=== PATIENT | female | born 2000 | race African-American/Black ===

== ENCOUNTER 2025-10-01 02:59 | Emergency (ER) | payer OTHER, SELFPAY ==
[2025-10-01 03:02] VITALS: BP 118/70; PULSE 88; RESP 18; TEMP 36.6; O2SAT 99; BMI 35.1
[2025-10-01 03:19] VITALS: BP 115/79; PULSE 82; RESP 16; TEMP 36.7; O2SAT 97
--- NOTE | 2025-10-01 03:27 | PC.NURSE ---
Patient presents to Ed c/o headache on left parietal lobe rated 10/10 Patient has been experiencing this pain for months now and has an appt to see her primary Patient also reports having syncopal episodes, last episode was a couple months ago +ROM of head, neck muscle noted to be tight Provider in to see patient VSS and up to date Plan of care on going
--- NOTE | 2025-10-01 03:31 | ECG_ITS ---
Test Reason : syncopal episodes Blood Pressure : */* mmHG Vent. Rate : 75 BPM Atrial Rate : 75 BPM P-R Int : 180 ms QRS Dur : 82 ms QT Int : 382 ms P-R-T Axes : 47 63 27 degrees QTcB Int : 426 ms Normal sinus rhythm Normal ECG No previous ECGs available Referred By: Ammy Cruz Electronically Signed By: MIRANDA GUILLEN MD
--- NOTE | 2025-10-01 03:34 | ED_ITS ---
HPI - Headache General Chief Complaint: Headache Stated Complaint: Headache Time Seen by Provider: 10/01/25 03:14 Source: patient Mode of arrival: ambulatory Limitations: no limitations History of Present Illness ED Provider: Dr. Ammy Cruz HPI Narrative: Patient comes to the emergency room complaining of months of sharp shooting pain starting from the back of the head towards the middle of the back towards the shoulder and the same side of the neck. Patient states that it gets worse with stress. Patient denies any injuries. also, patient states that couple of times, she has had syncopal episodes. Last time happened a proximally 2-3 months ago. Patient states that she was in a restaurant and all of a sudden she passed out at the table. Patient states that she does not have insurance and has not been seen by a PCP. patient states that she does not recall much, but does not believe that there was any chest pain, palpitations or shortness of breath. Related Data Previous Rx's ?Medication ?Instructions ?Recorded cyclobenzaprine 5 mg tablet 5 mg PO BID PRN muscle spa sm #14 10/01/25 tabs ibuprofen 600 mg tablet 600 mg PO Q8H PRN fever or p ain 10/01/25 #20 tabs Allergies Allergy/AdvReac Type Severity Reaction Status Date / Time No Known Allergies (No Known Allergy Verified 10/01/25 03:04 Allergies*) Review of Systems 2 Review of Systems: Constitutional : No Weight loss, No Fever, No Chills, No Night Sweats, No Fatigue, No Malaise ENT/Mouth : No Hearing loss, No Ear Pain, No Nasal Congestion, No Sinus Pain, No Hoarseness, No sore throat, No Rhinorrhea, No Swallowing Difficulty Eyes: No Eye Pain, No Swelling, No Redness, No Foreign Body, No Discharge, No Vision Changes Cardiovascular : No Chest Pain, No SOB, No Dyspnea on Exertion, No Orthopnea, No Edema, No Palpitations Respiratory : No Cough, No Sputum, No Wheezing, No Smoke Exposure, No Dyspnea Gastrointestinal : No Nausea, No Vomiting, No Diarrhea, No Constipation, No abdominal Pain, No Hematochezia, No Melena Genitourinary : no irregular bleeding, No Dysuria, No Urinary Frequency, No Hematuria, No Urinary Incontinence, No Urgency, No Flank Pain, No Urinary Flow Changes, No Hesitancy Musculoskeletal : complaining of left-sided posterior neck pain, worsens with stress. No joint pain, No Myalgias, No Joint Swelling Skin : No Skin Lesions, No rash Neuro : No Weakness, No Numbness, No Paresthesias, Patient reports multiple syncopal episodes in the last year, last 1 2 months ago. No Dizziness, No Headache Psych : No Anxiety/Panic, No Depression, No SI/HI/AH/VH, No Social Issues, Heme/Lymph: No Bruising, No Bleeding,No Lymphadenopathy Endocrine : No Polyuria, No Polydipsia, No Temperature Intolerance [facility] Social History Social History Alcohol intake: current Alcohol intake frequency: holidays/special occasions only Alcohol type: beer, wine and hard liquor Smoked in Last 30 Days: No Use of substances other than those prescribed or required for medical reasons: No Patient : No Physical Exam 2 Exam: Exam: Appearance: Alert. Oriented X3. No acute distress. Eyes: Pupils equal, round and reactive to light. in patient's right pupil, there is a small 2 mm x 2 mm cataract ENT: Pharynx normal. Neck: Normal inspection. Neck supple. No lymph nodes noted. No crepitus CVS: Normal heart rate and rhythm. Pulses normal. Normal S1 and S2 Respiratory: No respiratory distress. Breath sounds normal. No Wheezing. No rales Abdomen: Soft and nontender. No rigidity. No distention back: Pain to palpation over the supra scapula and supra clavicular area only on the left, also pain to palpation in the left side of the neck. Pain to palpation over the rhomboid and sternocleidomastoid distribution. Skin: Skin warm and dry. Normal skin color. Normal skin turgor. Extremities: No lower extremity edema. No Lacerations. No Rash Neuro: Oriented X 3. No motor deficit. No sensory deficit. Moving all extremities. No slurred speech. CN 2 through 12 grossly intact Psych: calm, cooperative, normal affect Vital Signs: Vital Signs: Last Vital Signs Temp 98.1 F 10/01/25 04:23 Pulse 79 10/01/25 04:23 Resp 14 10/01/25 04:23 BP 119/82 10/01/25 04:23 Pulse Ox 96 10/01/25 04:23 O2 Del Method Room Air 10/01/25 04:23 BMI result Body Mass Index 35.1 Course Course Course Narrative: patient mainly coming to the emergency room complaining of left-sided neck pain and upper back pain. However, patient stated that also she has been having multiple episodes of passing out without any symptoms. Patient states that the last time this happened was 2 months ago. Patient was given ibuprofen and cyclobenzaprine for neck pain. EKG, blood work pending, discussed with the patient that eventually she will need a more thorough workup through cardiology Medications Administered Discontinued Medications Generic Name Dose Route Start Last Admin Trade Name Yamel PRN Reason Stop Dose Admin Cyclobenzaprine HCl 5 mg 10/01/25 03:33 10/01/25 03:45 Cyclobenzaprine Hcl 5 Mg Tablet PO 10/01/25 03:34 5 mg ONCE ONE Administration Ibuprofen 600 mg 10/01/25 03:33 10/01/25 03:44 Ibuprofen 600 Mg Tablet PO 10/01/25 03:34 600 mg ONCE ONE Administration Medical Decision Making Medical Decision Making [facility] Narrative: my interpretation of EKG: Normal sinus rhythm, heart rate 75, no ST segment depression or elevation, no T-wave inversion, QTC 426 my interpretation of labs: Normal hematology, normal chemistry, D-dimer negative, negative troponin, negative LFTs, negative beta-hCG orthostatic blood pressures negative I discussed with the patient that if she continues having the symptoms, she needs to have close follow-up with Cardiology, patient may be a good candidate for a Holter monitor evaluation. The last time the patient had a syncopal episode was over 2 months ago. No recent events. At this time, patient is asymptomatic. Patient's neck pain is better Differential Diagnosis Differential Diagnoses: The differential diagnosis associated with the presentation includes ( musculoskeletal pain.) Admission/Observation Consideration of admission/observation: Escalation of care including admission/observation considered ( given patient's history of syncope, observation was considered) Lab Data [facility] Lab Attestation statement: I reviewed the patient's lab results. 10/01/25 04:08 10/01/25 04:08 Labs: Lab Results 10/01/25 Range/Units 04:08 WBC 8.2 (4.8-10.8) X10*3/uL RBC 4.25 (4.20-5.50) X10*6/uL Hgb 12.2 (12.0-16.0) g/dl Hct 37.5 (37.0-47.0) % MCV 88.2 (80.0-98.0) fL MCH 28.7 (27.0-33.0) pg MCHC 32.5 (31.0-35.0) g/dl RDW 13.5 (11.0-16.0) % Plt Count 320 (160-400) X10*3/uL MPV 9.1 L (9.4-12.3) fL Immature Gran % (Auto) 0.2 (0.0-0.4) % Neut % (Auto) 63.0 (45-73) % Lymph % (Auto) 26.1 (20-40) % Stark % (Auto) 7.7 (2-11) % Eos % (Auto) 2.6 (0-4) % Baso % (Auto) 0.4 (0-2) % Lymph # (Auto) 2.1 (1.2-4.9) X10*3/uL Stark # (Auto) 0.6 (0.1-1.2) X10*3/uL Eos # (Auto) 0.2 (0.0-0.4) X10*3/uL Baso # (Auto) 0.0 (0.0-0.2) X10*3/uL Abs Immat Gran (auto) 0.02 (0.00-0.03) X10*3/uL Absolute Neuts (auto) 5.2 (2.0-8.3) x10*3/uL Absolute Nucleated RBC 0.000 (0.0-0.012) X10*3/uL Nucleated RBC % (auto) 0.0 (0.0-0.2) /100WBC D-Dimer High Sensitivty < 150 NG/ML Sodium 137 (135-145) mmol/L Potassium 4.2 (3.3-5.1) mmol/L Chloride 104 (96-108) mmol/L Carbon Dioxide 22 (22-29) mmol/L Anion Gap 15 (12-20) BUN 7 L (9-16) mg/dL Creatinine 0.72 (0.5-1.4) mg/dL Estim Creat Clear Calc 134.2 Estimated GFR > 60 Random Glucose 98 (60-115) mg/dL Calcium 9.2 (8.4-10.2) mg/dL Magnesium 1.7 (1.6-2.6) mg/dL Total Bilirubin 0.4 (0.0-1.0) mg/dL Direct Bilirubin 0.1 (0.0-0.5) mg/dL AST 25 (5-31) U/L ALT 18 (0-31) U/L Alkaline Phosphatase 100 (39-117) U/L Troponin I High Sens < 2.7 (<3.5-17.0) ng/L Total Protein 7.3 (6.5-8.0) g/dL Albumin 4.4 (3.5-5.0) g/dL Beta HCG, Quant < 2 mIU/mL Critical Care Time Critical Care Time Critical Care Time: Yes Total Critical Care Time: 35 Attestation: I have personally provided critical care time. Time includes review of lab data, radiology results, discussion with consultants, and monitoring for potential decompensation. Intervention performed as documented. Discharge Plan Discharge Clinical Impression: Neck pain, Episode of syncope Patient Disposition: Home, Self-Care Additional Instructions: Please follow-up with your primary care physician tomorrow. If you have any worsening or new symptoms, please return to the emergency room or call 911 Prescriptions: New cyclobenzaprine 5 mg tablet 5 mg PO BID PRN (Reason: muscle spasm) Qty: 14 0RF Rx Instructions: do not drive or go to work after using this medication. ibuprofen 600 mg tablet 600 mg PO Q8H PRN (Reason: fever or pain) Qty: 20 0RF Referrals: Leonardo Melara MD [Physician, Cardiology] Print Language: Bengali
[2025-10-01 04:13] LABS: Hematocrit 37.5 % (37.0-47.0); Hemoglobin 12.2 g/dl (12.0-16.0); Imm Gran Abs Auto 0.02 X10*3/uL (0.00-0.03); Imm Gran Pct Auto 0.2 % (0.0-0.4); Lymphocytes Absolute Auto 2.1 X10*3/uL (1.2-4.9); MANUAL DIFF FLAG NO; Mean Corpuscular HGB Conc 32.5 g/dl (31.0-35.0); Mean Corpuscular Hemoglobin 28.7 pg (27.0-33.0); Mean Corpuscular Volume 88.2 fL (80.0-98.0); NRBC Abs Auto 0.000 X10*3/uL (0.0-0.012); NRBC Pct Auto 0.0 /100WBC (0.0-0.2); Platelet Count 320 X10*3/uL (160-400); Red Blood Count 4.25 X10*6/uL (4.20-5.50); White Blood Count 8.2 X10*3/uL (4.8-10.8)
[2025-10-01 04:21] VITALS: BP 127/77; PULSE 76
[2025-10-01 04:21] LABS: D Dimer High Sensitivity < 150 NG/ML
[2025-10-01 04:22] VITALS: BP 119/82; BP 122/86; PULSE 75; PULSE 79
[2025-10-01 04:23] VITALS: BP 119/82; PULSE 79; RESP 14; TEMP 36.7; O2SAT 96
--- NOTE | 2025-10-01 04:35 | PC.NURSE ---
IV 20G placed Left AC Blood collected / sent EKG = NSR Orthos performed = negative Urine sample collected / sent Awaiting lab results
[2025-10-01 04:36] LABS: Troponin-I High Sensitivity < 2.7 ng/L (<3.5-17.0)
[2025-10-01 04:37] LABS: Alanine Aminotransferase 18 U/L (0-31); Albumin Level 4.4 g/dL (3.5-5.0); Alkaline Phosphatase 100 U/L (39-117); Anion Gap 15 (12-20); Aspartate Amino Transferase 25 U/L (5-31); Blood Urea Nitrogen 7 mg/dL (9-16); Calcium 9.2 mg/dL (8.4-10.2); Carbon Dioxide 22 mmol/L (22-29); Chloride 104 mmol/L (96-108); Creatinine Clr Calc Pharmacy 134.2; Estimated Glomerular Filt Rate > 60; Magnesium 1.7 mg/dL (1.6-2.6); Potassium 4.2 mmol/L (3.3-5.1); Sodium 137 mmol/L (135-145); Total Protein 7.3 g/dL (6.5-8.0)
[2025-10-01 04:48] LABS: Cannabinoid Screen Urine Not Detected (Not Detect)
[2025-10-01 05:07] VITALS: BP 119/82; PULSE 79; RESP 14; TEMP 36.7; O2SAT 96
== END 2025-10-01 05:09 | disposition home or self-care (01) ==
LOC: HO.ED 05:07
PROVIDERS: Emergency Provider Emergency Medicine; PCP Student in an Organized Health Care Education/Training Program
DX: M54.2 Cervicalgia (principal); R55 Syncope and collapse; R51.9 Headache, unspecified; M54.9 Dorsalgia, unspecified; M25.519 Pain in unspecified shoulder
CPT/HCPCS: 36415; 80048; 80076; 80307; 83735; 84484; 84702; 85025; 85379; 93005; 99284; 99285

== ENCOUNTER → 2025-10-01 03:31 | Outpatient (BNV) | payer OTHER, SELFPAY | PROVIDERS: Emergency Provider Emergency Medicine; PCP Student in an Organized Health Care Education/Training Program; Visit Provider Internal Medicine Cardiovascular Disease | DX: R55 Syncope and collapse (principal) | CPT/HCPCS: 93010 ==